=== PATIENT | female | born 1965 | race Native Hawaiian/Other Pacific Islander ===

== ENCOUNTER 2021-10-14 07:32 | Outpatient (CLI) | payer OTHER | END 2021-10-14 18:55 | disposition home or self-care (01) | LOC: LABW 07:32 | PROVIDERS: ATTEND Nurse Practitioner Family | DX: N95.1 Menopausal and female climacteric states (principal); R68.82 Decreased libido; Z79.890 Hormone replacement therapy | CPT/HCPCS: 36415; 82670; 83001; 84403 ==

== ENCOUNTER 2022-09-15 10:46 | Outpatient (CLI) | payer OTHER | END 2022-09-15 20:31 | disposition home or self-care (01) | LOC: MAMMO 10:46 | PROVIDERS: ATTEND Nurse Practitioner Family | DX: Z12.31 Encounter for screening mammogram for malignant neoplasm of breast (principal) ==

== ENCOUNTER 2023-07-20 08:47 | Outpatient (CLI) | payer OTHER | END 2023-07-20 19:12 | disposition home or self-care (01) | LOC: LABW 08:47 | PROVIDERS: ATTEND Nurse Practitioner Family | DX: R30.0 Dysuria (principal) | CPT/HCPCS: 87077; 87086; 87088; 87186 ==